=== PATIENT | female | born 1955 | race Caucasian/White ===

== ENCOUNTER → 2016-08-11 | Outpatient (CLI) | payer BC ==
--- NOTE | 2016-08-12 08:21 | CT ---
EXAMINATION TYPE: CT pelvis w con DATE OF EXAM: 08/11/2016 7:10 PM COMPARISON: NONE HISTORY: RLQ and pelvic pain. CT DLP: 626.3 mGycm Automated exposure control for dose reduction was used. CONTRAST: Performed with oral and with IV Contrast, patient injected with 100 mL of Omnipaque 300. FINDINGS: Visualized small and large bowel loops show no suspicious dilatation. Distal colon is slightly subopt imal as contrast does not reach this level. Normal-appearing appendix is seen from the cecum in the r ight lower quadrant. Urinary bladder is within normal limits. Uterus is anteverted in shape and within normal limits in size extending to left of midline. No suspi cious adnexal masses are noted. There are prominent left-sided gonadal or ovarian veins in which a pe lvic congestion syndrome cannot be excluded but does not correlate with patient's symptoms of right-s ided pain. There is no pelvic free fluid. No greater than 1 cm pelvic adenopathy is seen. There is moderate disc space narrowing with vacuum disc phenomenon L4-L5 and L5-S1 levels. There is s urgical clip or possible densely calcified phlebolith along the course of the distal left external il iac vessels on axial image 41. IMPRESSION: CAUSE FOR PATIENT'S RIGHT-SIDED PAIN IS NOT CLEARLY IDENTIFIED. A PELVIC CONGESTION SYNDROME ON THE L EFT IS NOT EXCLUDED.
== END ==
LOC: RADCTMAIN 18:32
PROVIDERS: ATTEND Family Medicine
DX: R10.31 Right lower quadrant pain (principal)
CPT/HCPCS: 72193; Q9967

== ENCOUNTER → 2016-08-28 | Outpatient (CLI) | payer BC ==
--- NOTE | 2016-08-29 19:57 | US ---
EXAMINATION TYPE: US transvaginal DATE OF EXAM: 08/28/2016 4:25 PM COMPARISON: NONE CLINICAL HISTORY: 61-year-old female R10.31 right lower quadrant abdominal Pain. Date of LMP: 25 years ago TECHNIQUE: Multiple transvaginal sonographic images of the pelvis were obtained. FINDINGS: Uterus: Anteverted measuring 6.4 x 2.5 x 4.7 cm. Incidentally, some prominent myometrial vessels are noted. Endometrial Stripe: 0.3 cm Right Ovary: 1.5 x 1.4 x 0.7 cm, within normal limits. Left Ovary: not identified cm Prominent vasculature is noted in the left adnexa. No pelvic free fluid. IMPRESSION: 1. Prominent uterine myometrial vessels and prominent vasculature in the left adnexa. Findings are no nspecific but may be seen in the setting of pelvic congestion syndrome. Clinically correlate. 2. Left ovary could not be visualized.
== END | disposition home or self-care (01) ==
LOC: RADUSWWP 16:04
PROVIDERS: ATTEND Family Medicine
DX: R10.31 Right lower quadrant pain (principal)
CPT/HCPCS: 76830

== ENCOUNTER → 2017-05-28 | Outpatient (CLI) | payer BC ==
--- NOTE | 2017-06-01 10:09 | MM ---
Reason for exam: screening (asymptomatic). Last mammogram was performed 6 years and 3 months ago. History: Patient is postmenopausal. Took estrogen for 2 years. Took progesterone for 2 years. Physical Findings: A clinical breast exam by your physician is recommended on an annual basis and results should be correlated with mammographic findings. MG Screening Mammo w CAD Bilateral CC and MLO view(s) were taken. Prior study comparison: March 02, 2011, bilateral digital screening mammo w/CAD. May 10, 2009, bilateral digital screening mammogram. The breast tissue is heterogeneously dense. This may lower the sensitivity of mammography. No significant changes when compared with prior studies. ASSESSMENT: Benign, BI-RAD 2 RECOMMENDATION: Routine screening mammogram of both breasts in 1 year.
== END | disposition home or self-care (01) ==
LOC: RADMAMWWP 15:01
PROVIDERS: ATTEND Family Medicine
DX: Z12.31 Encounter for screening mammogram for malignant neoplasm of breast (principal)
CPT/HCPCS: 77067

== ENCOUNTER 2017-08-09 09:05 | Emergency (ER) | payer BC ==
[2017-08-09 09:11] VITALS: RESP 18
[2017-08-09] MEDS ORDERED: RX INFO: IV CONTRAST WAS GIVEN 1 EACH MISC MISCELLANE PRN (09:32)
[2017-08-09] MEDS ORDERED: FAMOTIDINE 20 MG/2 ML VIAL IV STA (09:33)
[2017-08-09] MEDS ORDERED: diphenhydrAMINE 50 MG/ML 1 ML VIAL IVP STA (09:33)
--- NOTE | 2017-08-09 09:33 | ED ---
ENT HPI - General Chief complaint: Dental/Oral Stated complaint: Facial Swelling Time Seen by Provider: 08/09/17 09:13 Source: patient, RN notes reviewed, old records reviewed Mode of arrival: ambulatory Limitations: no limitations - History of Present Illness Initial comments: [id number] feel presents emergency department today chief complaint of left-sided facial swelling. She reports that it started over the weekend. Yesterday she went to [facility] and was started on clindamycin and was given IV Rocephin and Toradol. She reports that the swelling became worse today's that she came here. She denies any significant pain with it. She relates that she's had no chest pain or shortness of breath. She denies any nausea or vomiting. She relates that she has no pain with extraocular eye movements. She does report some sinus pressure and congestion. - Related Data Home Medications Medication Instructions Recorded Confirmed Clindamycin HCl 300 mg PO Q8H 08/09/17 08/09/17 Ibuprofen [Motrin Ib] 800 mg PO Q6H PRN 08/09/17 08/09/17 Allergies Allergy/AdvReac Type Severity Reaction Status Date / Time No Known Allergies Allergy Verified 08/09/17 09:35 Review of Systems ROS Statement: Those systems with pertinent positive or pertinent negative responses have been documented in the HPI. ROS Other: All systems not noted in ROS Statement are negative. Past Medical History Past Medical History: Sleep Apnea/CPAP/BIPAP Additional Past Medical History / Comment(s): constipation History of Any Multi-Drug Resistant Organisms: None Reported Past Surgical History: Orthopedic Surgery Past Anesthesia/Blood Transfusion Reactions: Motion Sickness Past Psychological History: No Psychological Hx Reported Smoking Status: Never smoker Past Alcohol Use History: None Reported Past Drug Use History: None Reported - Past Family History Mother Family Medical History: Cancer General Exam - General Exam Comments Initial Comments: 62-year-old female. Alert and oriented. No distress. Limitations: no limitations General appearance: alert, in no apparent distress Head exam: Present: atraumatic, normocephalic, normal inspection Eye exam: Present: normal appearance, PERRL, EOMI, periorbital swelling (left- sided facial periorbital swelling.). Absent: scleral icterus, conjunctival injection ENT exam: Present: normal exam, normal oropharynx (patient has a fractured tooth #14.), mucous membranes moist, other (patient has swelling over the left side of her face. Periorbital swelling noted. No pain with extraocular eye movements.) Neck exam: Present: normal inspection. Absent: tenderness, meningismus, lymphadenopathy Respiratory exam: Present: normal lung sounds bilaterally. Absent: respiratory distress, wheezes, rales, rhonchi, stridor Cardiovascular Exam: Present: regular rate, normal rhythm, normal heart sounds. Absent: systolic murmur, diastolic murmur, rubs, gallop, clicks GI/Abdominal exam: Present: soft, normal bowel sounds. Absent: distended, tenderness, guarding, rebound, rigid Extremities exam: Present: normal inspection, full ROM, normal capillary refill. Absent: tenderness, pedal edema, joint swelling, calf tenderness Back exam: Present: normal inspection Neurological exam: Present: alert, oriented X3, CN II-XII intact Psychiatric exam: Present: normal affect, normal mood Skin exam: Present: warm, dry, intact, normal color. Absent: rash Course Vital Signs 08/09/17 08/09/17 09:07 11:12 Temperature 97.4 F L Pulse Rate 55 L 68 Respiratory 18 18 Rate Blood Pressure 123/55 114/57 O2 Sat by Pulse 97 100 Oximetry Medical Decision Making - Medical Decision Making 62-year-old female presents emergency Department chief complaint of left-sided facial swelling. She was given IV Rocephin yesterday at [facility] as well as Toradol. She reports the swelling gets worse. She's had 3 doses of by mouth clindamycin since that time. At this time patient has no pain with extraocular eye movements. She does have some periorbital cellulitis noted. Patient's given IV fluids labwork obtained. Patient's white blood cell count is normal. Negative lactic acid. I did obtain blood cultures. CT of the face was performed and shows left-sided maxillary sinusitis. Also a left preorbital cellulitis. At this time with normal blood work in no signs of abscess will discharge the patient. I will give her another dose of Rocephin in the emergency department. Discussed continuing the by mouth clindamycin. Discussed return parameters. Is also noted that she had occasional skipped beats on cardiac exam. EKG was performed she has occasional PVCs. She is asymptomatic. She states that she has no dizziness or chest pain shortness breath. Patient from she should follow-up with her primary care provider regards to this. - Lab Data Result diagrams: 08/09/17 09:47 08/09/17 09:47 Lab Results 08/09/17 08/09/17 08/09/17 Range/Units 09:47 09:47 09:47 WBC 9.1 (3.8-10.6) k/uL RBC 3.96 (3.80-5.40) m/uL Hgb 12.9 (11.4-16.0) gm/dL Hct 37.6 (34.0-46.0) % MCV 94.8 (80.0-100.0) fL MCH 32.7 (25.0-35.0) pg MCHC 34.5 (31.0-37.0) g/dL RDW 13.6 (11.5-15.5) % Plt Count 174 (150-450) k/uL Neutrophils % 72 % Lymphocytes % 19 % Monocytes % 7 % Eosinophils % 1 % Basophils % 1 % Neutrophils # 6.5 (1.3-7.7) k/uL Lymphocytes # 1.7 (1.0-4.8) k/uL Monocytes # 0.6 (0-1.0) k/uL Eosinophils # 0.1 (0-0.7) k/uL Basophils # 0.1 (0-0.2) k/uL Sodium 143 (137-145) mmol/L Potassium 4.6 (3.5-5.1) mmol/L Chloride 109 H (98-107) mmol/L Carbon Dioxide 21 L (22-30) mmol/L Anion Gap 13 mmol/L BUN 21 H (7-17) mg/dL Creatinine 0.81 (0.52-1.04) mg/dL Est GFR (CKD-EPI)AfAm >90 (>60 ml/min/1.73 sqM) Est GFR (CKD-EPI)NonAf 80 (>60 ml/min/1.73 sqM) Glucose 93 (74-99) mg/dL Plasma Lactic Acid Sonido 0.6 L (0.7-2.0) mmol/L Calcium 9.2 (8.4-10.2) mg/dL 08/09/17 10:08 EKG shows sinus rhythm with occasional PVCs. Possible left atrial enlargement. Low voltage QRS. Borderline EKG noted. Ventricular rate of 60 bpm. CA interval 1:30 milliseconds. QRS duration 80 ms. QTQTC's were 2/427 ms. No evidence of ST elevation or T-wave inversions. - Radiology Data Radiology results: report reviewed Correlate for left Sinusitis. Probable preseptal cellulitis the left orbit region. Disposition Clinical Impression: Periorbital cellulitis of left eye, Left maxillary sinusitis, PVC (premature ventricular contraction) Disposition: HOME SELF-CARE Condition: Good Instructions: Periorbital Cellulitis in Adults (ED), Premature Ventricular Contractions (ED) Additional Instructions: Patient should follow-up with primary care provider. Continue to take the antibiotics. Return to the emergency department if any alarming signs or symptoms occur. Referrals: Mi Esposito MD [Primary Care Provider] - 1-2 days Time of Disposition: 11:27
[2017-08-09] MEDS ORDERED: SODIUM CHLORIDE 0.9% 1,000 ML IV ONE (09:37)
[2017-08-09] MEDS ORDERED: SODIUM CHLORIDE 0.9% 1,000 ML IV SCH (09:45)
[2017-08-09 10:15] LABS: Basophils # (A) 0.1 k/uL (0-0.2); Basophils % (A) 1 %; Eosinophils # (A) 0.1 k/uL (0-0.7); Eosinophils % (A) 1 %; HCT 37.6 % (34.0-46.0); HGB 12.9 gm/dL (11.4-16.0); Lymphocytes # (A) 1.7 k/uL (1.0-4.8); Lymphocytes % (A) 19 %; MCH 32.7 pg (25.0-35.0); MCHC 34.5 g/dL (31.0-37.0); MCV 94.8 fL (80.0-100.0); Mean Platelet Volume 9.8; Monocytes # (A) 0.6 k/uL (0-1.0); Monocytes % (A) 7 %; Neutrophils # (A) 6.5 k/uL (1.3-7.7); Neutrophils % (A) 72 %; Platelet Count 174 k/uL (150-450); RBC 3.96 m/uL (3.80-5.40); RDW 13.6 % (11.5-15.5); WBC 9.1 k/uL (3.8-10.6)
[2017-08-09 10:20] LABS: Anion Gap 13 mmol/L; Blood Urea Nitrogen 21 mg/dL (7-17); Calcium 9.2 mg/dL (8.4-10.2); Carbon Dioxide 21 mmol/L (22-30); Chloride 109 mmol/L (98-107); Glucose 93 mg/dL (74-99); Sodium 143 mmol/L (137-145)
[2017-08-09 10:27] LABS: Potassium 4.6 mmol/L (3.5-5.1)
--- NOTE | 2017-08-09 10:39 | CT ---
EXAMINATION TYPE: CT facial bones w con DATE OF EXAM: 08/09/2017 COMPARISON: NONE HISTORY: Lt facial swelling CT DLP: 622.3 mGycm Automated exposure control for dose reduction was used. CONTRAST: CT scan of the facial bones is performed with IV Contrast, patient injected with 100 mL of Isovue 300 . TECHNIQUE: CT scan of the sinuses is performed without contrast, axial images are obtained, coronal r eformatted images are also reviewed. FINDINGS: There is increased density, air-fluid level in the left maxillary sinus, mucosal thickening . Ostiomeatal unit is obstructed on the left by soft tissue and patent on the right. Increased soft t issue density present over the left orbital region and the preseptal location. No evident abscess. De ntal amalgam causes streak artifact over portions of the exam. No evident adenopathy. There is normal vascular enhancement present. No evident intraorbital mass. No evident fracture. IMPRESSION: Correlate for left maxillary sinusitis. Probable preseptal cellulitis left orbit region.
[2017-08-09 11:13] VITALS: BP 114/57; PULSE 68
[2017-08-09] MEDS ORDERED: cefTRIAXone IN SWFI 1,000 MG/10 ML SYRINGE IVP STA (11:19)
[2017-08-09 11:41] VITALS: TEMP 97.9
== END 2017-08-09 11:38 | disposition home or self-care (01) ==
LOC: EC 09:05
DX: L03.213 Periorbital cellulitis (principal); J32.0 Chronic maxillary sinusitis; I49.3 Ventricular premature depolarization; S02.5XXA Fracture of tooth (traumatic), initial encounter for closed fracture
CPT/HCPCS: 36415; 93005; 80048; 83605; 85025; 87040; 70487; 99284; 96374; 96375 ×2; 96361; J1200; J0696; Q9967

== ENCOUNTER 2018-02-24 19:01 | Emergency (ER) | payer BC ==
[2018-02-24] MEDS ORDERED: METOCLOPRAMIDE 5 MG/ML 2 ML VIAL IVP STA (20:22)
[2018-02-24] MEDS ORDERED: SODIUM CHLORIDE 0.9% 500 ML 500 ML IV STA (20:22)
[2018-02-24] MEDS ORDERED: SODIUM CHLORIDE 0.9% 1,000 ML IV STA (20:22)
[2018-02-24] MEDS ORDERED: ONDANSETRON 4 MG/2 ML VIAL IVP STA (20:22)
[2018-02-24] MEDS ORDERED: diphenhydrAMINE 50 MG/ML 1 ML VIAL IVP STA (20:23)
--- NOTE | 2018-02-24 20:26 | ED ---
Nausea/Vomiting/Diarrhea HPI - General Chief complaint: Nausea/Vomiting/Diarrhea Stated complaint: headache/vomiting Time Seen by Provider: 02/24/18 20:08 Source: patient Mode of arrival: ambulatory Limitations: no limitations - History of Present Illness Initial comments: 62-year-old female patient presents to the emergency department today for evaluation of vomiting, diarrhea, and headache. Patient states on 4:30 this morning she started to vomit. Patient states that she has had "nonstop" vomiting throughout the day and approximately 7 episodes of diarrhea today. She denies any hematemesis, hematochezia, or melena with this. She denies any recent travel or sick contacts. She is not having abdominal pain with this. States that this afternoon she developed a headache. States it is mostly frontal in nature and feels like an intense pressure. States that she does have light and sound sensitivity with this. She denies taking any medications for her symptoms. She denies any fevers or chills.Patient denies any recent rash, fever, chills, shortness breath, chest pain, back pain, numbness, tingling , dizziness, weakness, hematuria, dysuria, urinary urgency, urinary frequency, headache, visual changes, or any other complaints. - Related Data Home Medications Medication Instructions Recorded Confirmed Polyethylene Glycol 3350 [Miralax] 17 gm PO DAILY 02/24/18 02/24/18 Previous Rx's Medication Instructions Recorded Ondansetron [Zofran ODT] 4 mg PO Q8HR PRN #10 tab 02/24/18 Allergies Allergy/AdvReac Type Severity Reaction Status Date / Time No Known Allergies Allergy Verified 02/24/18 20:08 Review of Systems ROS Statement: Those systems with pertinent positive or pertinent negative responses have been documented in the HPI. ROS Other: All systems not noted in ROS Statement are negative. Past Medical History Past Medical History: Sleep Apnea/CPAP/BIPAP Additional Past Medical History / Comment(s): constipation History of Any Multi-Drug Resistant Organisms: None Reported Past Surgical History: Orthopedic Surgery Past Anesthesia/Blood Transfusion Reactions: Motion Sickness Past Psychological History: No Psychological Hx Reported Smoking Status: Never smoker Past Alcohol Use History: None Reported Past Drug Use History: None Reported - Past Family History Mother Family Medical History: Cancer General Exam Limitations: no limitations General appearance: alert, in no apparent distress, other (This is a well- developed, well-nourished adult female patient in no acute distress. Vital signs upon presentation are temperature 97.5F, pulse 50, respirations 20, blood pressure 110/52, pulse ox 98% on room air.) Eye exam: Present: normal appearance, PERRL, EOMI. Absent: scleral icterus, conjunctival injection, periorbital swelling ENT exam: Present: normal exam, normal oropharynx, mucous membranes moist Respiratory exam: Present: normal lung sounds bilaterally. Absent: respiratory distress, wheezes, rales, rhonchi, stridor Cardiovascular Exam: Present: regular rate, normal rhythm, normal heart sounds. Absent: systolic murmur, diastolic murmur, rubs, gallop, clicks GI/Abdominal exam: Present: soft, normal bowel sounds. Absent: distended, tenderness, guarding, rebound, rigid Neurological exam: Present: alert, oriented X3, CN II-XII intact, other ( Strength in all 4 extremities is 5/5.) Psychiatric exam: Present: normal affect, normal mood Skin exam: Present: warm, dry, intact, normal color. Absent: rash Course Vital Signs 02/24/18 02/24/18 02/24/18 19:32 21:00 22:00 Temperature 97.5 F L Pulse Rate 50 L 73 87 Respiratory 20 16 16 Rate Blood Pressure 110/52 146/76 125/65 O2 Sat by Pulse 98 99 97 Oximetry 02/24/18 23:00 Temperature Pulse Rate 86 Respiratory 14 Rate Blood Pressure 118/68 O2 Sat by Pulse 99 Oximetry Medical Decision Making - Medical Decision Making 62-year-old female patient presents to the emergency department today for complaints of vomiting and diarrhea. Denied any abdominal pain. Physical examination revealed a soft nontender abdomen. Patient is also complaining of headache. She is neurologically intact with no focal deficits. Labs reviewed and did reveal an elevated white blood cell count at 20.2, neutrophils 19.1. BUN is mildly elevated at 19. Creatinine normal. Urinalysis showed no evidence of infection. Upon reevaluation patient is feeling much better. She did receive 1.5 L of normal saline. She is afebrile, vital signs stable. EKG normal. Troponin negative. Elevated white blood cell count is felt to be reactive from vomiting. Did discuss findings and results with the patient. Did discuss her symptoms are consistent with gastroenteritis. She'll be given prescription for Zofran. She is instructed to follow-up with her primary care physician for recheck in 1-2 days. Return parameters discussed in detail. She verbalizes understanding and agrees with this plan. - Lab Data Result diagrams: 02/24/18 20:58 02/24/18 20:58 Lab Results 02/24/18 02/24/18 02/24/18 Range/Units 20:58 20:58 20:58 WBC 20.2 H (3.8-10.6) k/uL RBC 4.33 (3.80-5.40) m/uL Hgb 14.3 (11.4-16.0) gm/dL Hct 42.4 (34.0-46.0) % MCV 98.1 (80.0-100.0) fL MCH 33.1 (25.0-35.0) pg MCHC 33.8 (31.0-37.0) g/dL RDW 13.6 (11.5-15.5) % Plt Count 195 (150-450) k/uL Neutrophils % 95 % Lymphocytes % 4 % Monocytes % 1 % Eosinophils % 0 % Basophils % 0 % Neutrophils # 19.1 H (1.3-7.7) k/uL Lymphocytes # 0.7 L (1.0-4.8) k/uL Monocytes # 0.3 (0-1.0) k/uL Eosinophils # 0.0 (0-0.7) k/uL Basophils # 0.0 (0-0.2) k/uL PT (9.0-12.0) sec INR (<1.2) APTT (22.0-30.0) sec Sodium 139 (137-145) mmol/L Potassium 4.2 (3.5-5.1) mmol/L Chloride 107 (98-107) mmol/L Carbon Dioxide 24 (22-30) mmol/L Anion Gap 8 mmol/L BUN 19 H (7-17) mg/dL Creatinine 0.55 (0.52-1.04) mg/dL Est GFR (CKD-EPI)AfAm >90 (>60 ml/min/1.73 sqM) Est GFR (CKD-EPI)NonAf >90 (>60 ml/min/1.73 sqM) Glucose 144 H (74-99) mg/dL Calcium 9.6 (8.4-10.2) mg/dL Total Bilirubin 0.8 (0.2-1.3) mg/dL AST 22 (14-36) U/L ALT 34 (9-52) U/L Alkaline Phosphatase 67 (38-126) U/L Total Creatine Kinase 94 (30-135) U/L CK-MB (CK-2) 1.7 (0.0-2.4) ng/mL CK-MB (CK-2) Rel Index 1.8 Troponin I <0.012 (0.000-0.034) ng/mL Total Protein 7.6 (6.3-8.2) g/dL Albumin 4.4 (3.5-5.0) g/dL Amylase 133 H (30-110) U/L Lipase 32 (23-300) U/L Urine Color Urine Appearance (Clear) Urine pH (5.0-8.0) Ur Specific [place] (1.001-1.035) Urine Protein (Negative) Urine Glucose (UA) (Negative) Urine Ketones (Negative) Urine Blood (Negative) Urine Nitrite (Negative) Urine Bilirubin (Negative) Urine Urobilinogen (<2.0) mg/dL Ur Leukocyte Esterase (Negative) Urine RBC (0-5) /hpf Urine WBC (0-5) /hpf Ur Squamous Epith Cells (0-4) /hpf Urine Mucus (None) /hpf 02/24/18 02/24/18 Range/Units 20:58 22:26 WBC (3.8-10.6) k/uL RBC (3.80-5.40) m/uL Hgb (11.4-16.0) gm/dL Hct (34.0-46.0) % MCV (80.0-100.0) fL MCH (25.0-35.0) pg MCHC (31.0-37.0) g/dL RDW (11.5-15.5) % Plt Count (150-450) k/uL Neutrophils % % Lymphocytes % % Monocytes % % Eosinophils % % Basophils % % Neutrophils # (1.3-7.7) k/uL Lymphocytes # (1.0-4.8) k/uL Monocytes # (0-1.0) k/uL Eosinophils # (0-0.7) k/uL Basophils # (0-0.2) k/uL PT 11.1 (9.0-12.0) sec INR 1.2 H (<1.2) APTT 23.9 (22.0-30.0) sec Sodium (137-145) mmol/L Potassium (3.5-5.1) mmol/L Chloride (98-107) mmol/L Carbon Dioxide (22-30) mmol/L Anion Gap mmol/L BUN (7-17) mg/dL Creatinine (0.52-1.04) mg/dL Est GFR (CKD-EPI)AfAm (>60 ml/min/1.73 sqM) Est GFR (CKD-EPI)NonAf (>60 ml/min/1.73 sqM) Glucose (74-99) mg/dL Calcium (8.4-10.2) mg/dL Total Bilirubin (0.2-1.3) mg/dL AST (14-36) U/L ALT (9-52) U/L Alkaline Phosphatase (38-126) U/L Total Creatine Kinase (30-135) U/L CK-MB (CK-2) (0.0-2.4) ng/mL CK-MB (CK-2) Rel Index Troponin I (0.000-0.034) ng/mL Total Protein (6.3-8.2) g/dL Albumin (3.5-5.0) g/dL Amylase (30-110) U/L Lipase (23-300) U/L Urine Color Yellow Urine Appearance Clear (Clear) Urine pH 6.0 (5.0-8.0) Ur Specific [place] 1.026 (1.001-1.035) Urine Protein 1+ H (Negative) Urine Glucose (UA) Negative (Negative) Urine Ketones 2+ H (Negative) Urine Blood Negative (Negative) Urine Nitrite Negative (Negative) Urine Bilirubin Negative (Negative) Urine Urobilinogen <2.0 (<2.0) mg/dL Ur Leukocyte Esterase Trace H (Negative) Urine RBC 5 (0-5) /hpf Urine WBC 4 (0-5) /hpf Ur Squamous Epith Cells 1 (0-4) /hpf Urine Mucus Moderate H (None) /hpf - EKG Data -: EKG Interpreted by Me EKG Comments: EKG obtained at 2052 shows sinus rhythm with occasional PVCs. Ventricular rate is 75, MS interval 158, QRS duration 90, QT 414, QTC 462. No evidence of ST elevation or depression. Disposition Clinical Impression: Gastroenteritis Disposition: HOME SELF-CARE Condition: Good Instructions: Gastroenteritis (ED), Acute Nausea and Vomiting (ED), Acute Diarrhea (ED) Additional Instructions: Take medication as directed. Start with clear liquid diet and advance as tolerated. Follow-up with your primary care physician for recheck in 1-2 days. Return here immediately for any new, worsening, or concerning symptoms. Prescriptions: Ondansetron [Zofran ODT] 4 mg PO Q8HR PRN #10 tab PRN Reason: Nausea Is patient prescribed a controlled substance at d/c from ED?: No Referrals: Mi Esposito MD [Primary Care Provider] - 1-2 days Time of Disposition: 23:18
[2018-02-24 21:13] LABS: Basophils % (A) 0 %; Eosinophils % (A) 0 %; HCT 42.4 % (34.0-46.0); HGB 14.3 gm/dL (11.4-16.0); Lymphocytes # (A) 0.7 k/uL (1.0-4.8); Lymphocytes % (A) 4 %; MCH 33.1 pg (25.0-35.0); MCHC 33.8 g/dL (31.0-37.0); MCV 98.1 fL (80.0-100.0); Monocytes # (A) 0.3 k/uL (0-1.0); Monocytes % (A) 1 %; Neutrophils # (A) 19.1 k/uL (1.3-7.7); Neutrophils % (A) 95 %; Platelet Count 195 k/uL (150-450); RBC 4.33 m/uL (3.80-5.40); RDW 13.6 % (11.5-15.5); WBC 20.2 k/uL (3.8-10.6)
[2018-02-24 21:23] LABS: ALT 34 U/L (9-52); AST 22 U/L (14-36); Albumin 4.4 g/dL (3.5-5.0); Alkaline Phosphatase 67 U/L (38-126); Amylase 133 U/L (30-110); Anion Gap 8 mmol/L; Blood Urea Nitrogen 19 mg/dL (7-17); Calcium 9.6 mg/dL (8.4-10.2); Carbon Dioxide 24 mmol/L (22-30); Chloride 107 mmol/L (98-107); Glucose 144 mg/dL (74-99); Lipase 32 U/L (23-300); Potassium 4.2 mmol/L (3.5-5.1); Sodium 139 mmol/L (137-145); Total Bilirubin 0.8 mg/dL (0.2-1.3); Total Protein 7.6 g/dL (6.3-8.2)
[2018-02-24 21:27] LABS: Creatine Kinase 94 U/L (30-135)
[2018-02-24 21:40] LABS: Creatine Kinase MB 1.7 ng/mL (0.0-2.4); Troponin I <0.012 ng/mL (0.000-0.034)
[2018-02-24 22:16] LABS: INR 1.2 (<1.2); Partial Thromboplastin Time 23.9 sec (22.0-30.0); Prothrombin Time 11.1 sec (9.0-12.0)
[2018-02-24 22:55] LABS: Appearance,Urine Clear (Clear); Bilirubin,Urine Negative (Negative); Blood,Urine Negative (Negative); Color,Urine Yellow; Glucose,Urine (UA) Negative (Negative); Ketones,Urine 2+ (Negative); Leukocyte Esterase,Urine Trace (Negative); Mucus,Urine Moderate /hpf; Nitrite,Urine Negative (Negative); Protein,Urine 1+ (Negative); RBC,Urine 5 /hpf (0-5); Specific Gravity,Urine 1.026 (1.001-1.035); Squamous Epithelial Cell,Urine 1 /hpf (0-4); Urobilinogen,Urine <2.0 mg/dL (<2.0); WBC,Urine 4 /hpf (0-5)
[2018-02-24 23:05] VITALS: BP 118/68; PULSE 86; RESP 14
[2018-02-24] MEDS ORDERED: ONDANSETRON 4 MG ODT STARTER PACK 2 TAB BTL PO STA (23:18)
[2018-02-24 23:34] VITALS: TEMP 98.7
== END 2018-02-24 23:40 | disposition home or self-care (01) ==
LOC: EC 19:01
DX: K52.9 Noninfective gastroenteritis and colitis, unspecified (principal); I49.3 Ventricular premature depolarization; D72.829 Elevated white blood cell count, unspecified; R79.89 Other specified abnormal findings of blood chemistry; G47.30 Sleep apnea, unspecified; Z79.899 Other long term (current) drug therapy; Z99.89 Dependence on other enabling machines and devices; Z87.19 Personal history of other diseases of the digestive system
CPT/HCPCS: 99284; 96374; 96375 ×2; 96361; 36415; 93005; 80053; 82150; 82550; 82553; 83690; 84484; 85025; 85610; 85730; 81001; J1200; J2765; J2405; S0119

== ENCOUNTER → 2019-04-25 | Outpatient (CLI) | payer MEDICAID ==
--- NOTE | 2019-04-28 10:56 | MM ---
Reason for exam: screening (asymptomatic). Last mammogram was performed 1 year and 11 months ago. History: Patient is postmenopausal. Took estrogen for 2 years. Took progesterone for 2 years. Physical Findings: A clinical breast exam by your physician is recommended on an annual basis and results should be correlated with mammographic findings. MG 3D Screening Mammo W/Cad Bilateral CC and MLO view(s) were taken. Prior study comparison: May 28, 2017, bilateral MG screening mammo w CAD. March 02, 2011, bilateral digital screening mammo w/CAD. There are scattered fibroglandular densities. No significant changes when compared with prior studies. ASSESSMENT: Benign, BI-RAD 2 RECOMMENDATION: Routine screening mammogram of both breasts in 1 year.
== END | disposition home or self-care (01) ==
LOC: RADMAMWWP 06:43
PROVIDERS: ATTEND Obstetrics & Gynecology
DX: Z12.31 Encounter for screening mammogram for malignant neoplasm of breast (principal)
CPT/HCPCS: 77063; 77067

== ENCOUNTER → 2021-01-04 | Outpatient (CLI) | payer MEDICAID ==
[2021-01-04 11:38] LABS: Basophils # (A) 0.07 X 10*3/uL (0.00-0.10); Basophils % (A) 1.2 %; Eosinophils # (A) 0.09 X 10*3/uL (0.04-0.35); Eosinophils % (A) 1.5 %; HCT 37.7 % (37.2-46.3); HGB 12.9 g/dL (12.0-15.0); Lymphocytes # (A) 1.92 X 10*3/uL (0.90-5.00); Lymphocytes % (A) 32.5 %; MCH 33.2 pg (27.0-32.0); MCHC 34.2 g/dL (32.0-37.0); MCV 97.2 fL (80.0-97.0); Mean Platelet Volume 12.3 fL (9.5-12.2); Monocytes # (A) 0.37 X 10*3/uL (0.20-1.00); Monocytes % (A) 6.3 %; Neutrophils # (A) 3.45 X 10*3/uL (1.80-7.70); Neutrophils % (A) 58.3 %; Platelet Count 216 X 10*3/uL (140-440); RBC 3.88 X 10*6/uL (4.10-5.20); RDW 13.1 % (11.5-14.5); WBC 5.91 X 10*3/uL (4.50-10.00)
[2021-01-04 12:09] LABS: African American GFR (CKD) 106.9 (60.0-200.0); Albumin 4.7 g/dL (3.80-4.90); Albumin/Globulin Ratio 2.14 (1.60-3.17); Anion Gap 6.4 mmol/L (4.00-12.00); BUN/Creat Ratio 17.14 Ratio (12.00-20.00); Calcium 9.3 mg/dL (8.7-10.3); Carbon Dioxide 26.6 mmol/L (21.6-31.8); Chol/HDL Ratio 4.22; Globulin 2.2 g/dL (1.6-3.3); LDL Cholesterol,Calculated 156.6 mg/dL (0.0-131.0); Non-African American GFR(CKD) 92.2 (60.0-200.0); Potassium 4.3 mmol/L (3.5-5.5); Total Bilirubin 0.6 mg/dL (0.3-1.2); Total Protein 6.9 g/dL (6.2-8.2); VLDL Calculation 20.4 mg/dL (5.00-40.00)
== END | disposition home or self-care (01) ==
LOC: LAB 08:13
PROVIDERS: ATTEND Internal Medicine
DX: Z00.00 Encounter for general adult medical examination without abnormal findings (principal); E78.5 Hyperlipidemia, unspecified; K59.09 Other constipation; K58.1 Irritable bowel syndrome with constipation; G47.33 Obstructive sleep apnea (adult) (pediatric); R39.15 Urgency of urination
CPT/HCPCS: 36415; 80053; 80061; 82306; 84443; 85025

== ENCOUNTER → 2021-04-28 | Outpatient (CLI) | payer MEDICAID ==
--- NOTE | 2021-04-30 11:16 | MM ---
Reason for exam: screening (asymptomatic). Last mammogram was performed 2 years ago. History: Patient is postmenopausal. Took estrogen for 2 years. Took progesterone for 2 years. Physical Findings: A clinical breast exam by your physician is recommended on an annual basis and results should be correlated with mammographic findings. MG 3D Screening Mammo W/Cad Bilateral CC and MLO view(s) were taken. Prior study comparison: April 25, 2019, bilateral MG 3d screening mammo w/cad. May 28, 2017, bilateral MG screening mammo w CAD. The breast tissue is heterogeneously dense. This may lower the sensitivity of mammography. Stable global asymmetries in the upper outer quadrants. Stable right CC asymmetric density central outer aspect anterior to middle depth. No significant changes when compared with prior studies. ASSESSMENT: Benign, BI-RAD 2 RECOMMENDATION: Routine screening mammogram of both breasts in 1 year.
== END | disposition home or self-care (01) ==
LOC: RADMAMWWP 15:07
PROVIDERS: ATTEND Obstetrics & Gynecology
DX: Z12.31 Encounter for screening mammogram for malignant neoplasm of breast (principal); Z78.0 Asymptomatic menopausal state
CPT/HCPCS: 77063; 77067

== ENCOUNTER → 2024-02-10 | Outpatient (CLI) | payer MEDICARE ==
--- NOTE | 2024-02-10 10:27 | BD ---
EXAMINATION TYPE: Axial Bone Density DATE OF EXAM: 02/10/2024 CLINICAL HISTORY: 68 years old Female. ICD-10 CODE: Z78.0 ASYMP [place] STATE Height: 66 Weight: 193 FRAX RISK QUESTIONS: 3. Menopause before 45: no at 54 RISK FACTORS HISTORY OF: MEDICATIONS: vit D, EXAM MEASUREMENTS: Bone mineral densitometry was performed using the [employer] System. Bone mineral density as measured about the Lumbar spine is: ----- L1-L4(G/cm2): 1.032 T Score Values are as follows: ----- L1: -1.4 ----- L2: -1.6 ----- L3: -0.7 ----- L4: -1.5 ----- L1-L4: -1.2 Z Score Values are as follows: ----- L1: -0.5 ----- L2: -0.7 ----- L3: 0.1 ----- L4: -0.6 ----- L1-L4: -0.4 Bone mineral density her first bone density test at [facility]. Bone mineral density about the R hip (g/cm2): 0.882 Bone mineral density about the L hip (g/cm2): 0.896 T Score values are as follows: -----R Neck: -0.9 -----L Neck: -1.3 -----R Total: -1.0 -----L Total: -0.9 Z Score values are as follows: -----R Neck: 0.2 -----L Neck: -0.3 -----R Total: -0.3 -----L Total: -0.2 Bone mineral density first dexa scan at [facility]. FRAX%s: The graph provided illustrates a 8.5% chance for a major osteoporotic fx and a 0.8% chance fo r the hips probability for fx in 10 years time. IMPRESSION: Osteopenia (T Score between -2.5 and -1). There is slightly increased risk of fracture and the patient may be considered for treatment. Re-Screen 2-5 years. NOTE: T-SCORE=SD OF THE YOUNG ADULT MEAN. [facility], , 02/10/2024 10:25 AM
--- NOTE | 2024-02-11 10:02 | MM ---
Reason for Exam: Screening (asymptomatic). Last mammogram was performed 2 year(s) and 10 month(s) ago. Patient History: Menarche at age 12. First Full-Term at age 27. Postmenopausal. Patient used Estrogen for 2 years. Patient used Progesterone for 2 years. Risk Values: Laine 5 year model risk: 2.0%. NCI Lifetime model risk: 7.3%. Prior Study Comparison: 05/28/2017 Bilateral Screening Mammogram, [facility]. 04/25/2019 Bilateral Screening Mammogram, [facility]. 04/28/2021 Bilateral Screening Mammogram, [facility]. Tissue Density: The breasts are heterogeneously dense, which may obscure small masses. Findings: Analyzed By CAD. There is no suspicious group of microcalcifications or new suspicious mass in either breast. Overall Assessment: Benign, BI-RAD 2 Management: Screening Mammogram of both breasts in 1 year. . Patient should continue monthly self-breast exams. A clinical breast exam by your physician is recommended on an annual basis. This exam should not preclude additional follow-up of suspicious palpable abnormalities. Note on Laine scores and lifetime risk: 1. A Laine score greater than 3% is considered moderate risk. If this is the case, consider specialist referral to assess eligibility for a risk reducing agent. 2. If overall lifetime risk for the development of breast cancer is 20% or higher, the patient may qualify for future screening with alternating mammogram and breast MRI. [facility], , 02/11/2024 10:00 AM. Electronically signed and approved by: Carter Waite M.D. Radiologis
== END | disposition home or self-care (01) ==
LOC: RADMAMWWP 07:26
PROVIDERS: ATTEND Family Medicine
CPT/HCPCS: 77063; 77067; 77080

== ENCOUNTER → 2024-05-12 | Outpatient (CLI) | payer MEDICARE ==
--- NOTE | 2024-05-12 08:24 | US ---
EXAMINATION TYPE: US gallbladder DATE OF EXAM: 05/12/2024 COMPARISON: NONE CLINICAL INDICATION: Female, 68 years old with history of R10.11 RIGHT UPPER QUADRANT PAIN; RUQ pain TECHNIQUE: Grayscale and color Doppler imaging of the right upper quadrant was performed. FINDINGS: EXAM MEASUREMENTS: Liver Length: 14.3 cm Gallbladder Wall: .2 cm CBD: .7 cm Right Kidney: 9.3 x 4.5 x 5.1 cm DIAL REFINISHER NOTES: Pancreas: Obscured by bowel gas Liver: Limited due to bowel gas , visualized portion of heterogeneously hyperechoic. Gallbladder: No stones seen Evidence for sonographic Rosa's sign: No CBD: Upper limits Right Kidney: No hydronephrosis or masses seen Suboptimal study. Visualized liver heterogeneously hyperechoic. This limits evaluation for focal mass es. Finding likely on basis of diffuse fatty infiltration. IMPRESSION: No gallstones or ultrasound evidence for acute cholecystitis. [facility], , 05/12/2024 8:21 AM
== END | disposition home or self-care (01) ==
LOC: RADUSWWP 07:42
PROVIDERS: ATTEND Family Medicine
DX: R10.11 Right upper quadrant pain (principal)
CPT/HCPCS: 76705